=== PATIENT | male | born 1990 | race Caucasian/White ===

== ENCOUNTER 2017-08-16 20:53 | Emergency (ER) | payer OTHER, SELFPAY ==
[2017-08-16] MEDS ORDERED: MORPHINE SULFATE 4 MG INJ IV ONE (21:14)
[2017-08-16] MEDS ORDERED: CLINDAMYCIN-D5W 600 MG/50 ML*** 600 MG/50 ML BAG IV STA (21:15)
[2017-08-16] MEDS ORDERED: Adacel Vial IM ONE ×2 (21:15→21:27)
[2017-08-16] MEDS ORDERED: MORPHINE SULFATE 4 MG INJ ONE (21:23)
[2017-08-16] MEDS ORDERED: CLINDAMYCIN-D5W 600 MG/50 ML*** 600 MG/50 ML BAG IV ONE (21:24)
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
[2017-08-16] MEDS ORDERED: Bacitracin EYE OINT OP ONE (21:27)
[2017-08-16] MEDS ORDERED: TETRACAINE 0.5% STERI-UNIT SOL OP ONE (22:19)
[2017-08-16] MEDS ORDERED: Fluor-I-Strip/Ful-Flo OP ONE ×2 (22:20→22:25)
[2017-08-16] MEDS ORDERED: Bacitracin EYE OINT ONE (22:24)
[2017-08-16] MEDS ORDERED: Erythromycin 3.5 GM OPHTH. OP ONE (22:25)
[2017-08-16] MEDS ORDERED: TETRACAINE 0.5% STERI-UNIT SOL OP STA (22:25)
[2017-08-16] MEDS ORDERED: PERCOCET TABLET 5/325MG PO STA (22:48)
[2017-08-16] MEDS ORDERED: PERCOCET TABLET 5/325MG ONE (22:50)
[2017-08-16 23:04] VITALS: BP 119/92; PULSE 76; O2SAT 97
== END 2017-08-16 23:04 | disposition home or self-care (01) ==
LOC: ED 20:53
DX: T20.00XA Burn of unspecified degree of head, face, and neck, unspecified site, initial encounter (principal); S05.02XA Injury of conjunctiva and corneal abrasion without foreign body, left eye, initial encounter; X16.XXXA Contact with hot heating appliances, radiators and pipes, initial encounter; F10.129 Alcohol abuse with intoxication, unspecified
CPT/HCPCS: 36000; 90471; 90715; 96365; 96372; 96374; 99284; J2270; A9270-GY

== ENCOUNTER 2017-11-01 21:41 | Emergency (ER) | payer OTHER ==
[2017-11-01] MEDS ORDERED: Sodium Chloride 0.9% 1000 ML 1,000 ML IV STA (22:22)
[2017-11-01] MEDS ORDERED: Zofran 4 MG/2 ML VIAL IV ONE (22:22)
[2017-11-01] MEDS ORDERED: Sodium Chloride 0.9% 1000 ML 1,000 ML ONE (22:31)
[2017-11-01] MEDS ORDERED: Zofran 4 MG/2 ML VIAL ONE (22:31)
[2017-11-01 22:33] LABS: BASOPHIL % 0.3 % (0.0-0.4); Basophil (Absolute #) 0.03 (0-0.4); Eosinophil % 4.9 % (0.00-5.0); Eosinophil (Absolute #) 0.45 (0-0.5); Granulocyte Absolute (ANC) 5.17 (1.4-6.9); Granulocytes % 56.7 % (36.0-66.0); Hematocrit 39.3 % (42-50); Hemoglobin 14.3 gm/dl (12.5-18.0); Lymphocyte (Absolute #) 2.59 (1.0-4.6); Lymphocytes % 28.3 % (24.0-44.0); Mean Cell Volume 85.2 fl (78-100); Mean Corpuscular Hgb Concent. 36.4 g/dl (32-36); Mean Platelet Volume 9.1 fl (6-9.5); Monocytes % 9.8 % (0.0-12.0); Platelet Count 221 K/mm3 (150-450); Red Blood Count 4.61 M/mm3 (4.1-5.6); Red Cell Distribution Width 12.3 % (11.5-14.0); White Blood Count 9.1 K/mm3 (4.0-10.5)
[2017-11-01 22:39] LABS: ALBUMIN 4.9 g/dL (3.5-5.0); ALKALINE PHOSPHATASE 65 U/L (38-126); AMYLASE 102 U/L (30-110); ANION GAP 15.5 MEQ/L (5-15); BLOOD UREA NITROGEN 26 mg/dL (9-20); CHLORIDE 101 mmol/L (98-107); Calcium 8.9 mg/dL (8.4-10.2); Carbon Dioxide 27 mmol/L (22-30); Creatinine 1 1.38 mg/dL (0.66-1.25); Glucose 87 mg/dL (74-106); LIPASE 86 U/L (23-300); Potassium 3.8 mmol/L (3.5-5.1); SGOT/AST 22 U/L (17-59); SGPT/ALT 15 U/L (0-50); SODIUM 140 mmol/L (137-145); Total Protein 7.1 g/dL (6.3-8.2)
[2017-11-01 23:18] LABS: Barbiturate,Urine NEGATIVE (NEGATIVE); Benzodiazepine,Urine POSITIVE (NEGATIVE); Cocaine,Urine NEGATIVE (NEGATIVE); Methadone,Urine NEGATIVE (NEGATIVE); Opiate,Urine POSITIVE (NEGATIVE); PCP,Urine NEGATIVE (NEGATIVE); THC,Urine NEGATIVE (NEGATIVE)
[2017-11-01 23:25] LABS: Appearance CLEAR (CLEAR); Bilirubin NEGATIVE (NEGATIVE); Blood NEGATIVE Ery/ul (0-5); Glucose NEGATIVE (NEGATIVE); Ketones NEGATIVE (NEGATIVE); Leukocyte Esterase NEGATIVE (NEGATIVE); Nitrite NEGATIVE (NEGATIVE); Protein,Urine Dip TRACE (Negative); Specific Gravity 1.025 (1.005-1.025); Urobilinogen NORMAL mg/dL (0-1)
[2017-11-01 23:26] LABS: Bacteria FEW /HPF (NEGATIVE); Epithelial Cells MODERATE /HPF (FEW); Mucus SLIGHT /HPF (NEGATIVE); WBC 0-2 /HPF (0-5)
[2017-11-01 23:27] VITALS: O2SAT 99
[2017-11-01 23:43] LABS: Amphetamine,Urine POSITIVE (NEGATIVE)
--- NOTE | 2017-11-01 23:54 | ERPHSYRPT ---
- History of Present Illness Time Seen by Provider: 11/01/17 22:00 Historian: patient Exam Limitations: clinical condition Patient Subjective Stated Complaint: pt states he has been having pain in his abd, n/v for past few days. states he has been having dark stools. also c/o headache. Triage Nursing Assessment: pt alert and oriented, asnwers questions approp. pt ambulatory with steady gait noted, respirations nonlabored with lungs cta. abd osft and nontender to palpation. bowel sounds preent x4. pu pils equal and reactive. bilat upper and lower ext strength equal and wnl. Physician History: PATIENT WITH A HISTORY OF DEPRESSION, CHRONIC PAIN SYNDROME COMPLAINS OF PERIUMBILICAL ABDOMINAL PAIN X 2-3 DAYS, HAD 1 EPISODE OF EMESIS TONIGHT. TREATED FOR SINUS INFECTION TWICE OVER THE PAST 2 WEEKS. DENIES DIARRHEA, URINARY SYMPTOMS OR FEVER. Timing/Duration: day(s) Activities at Onset: none Quality: cramping Abdominal Pain Onset Location: periumbilical Pain Radiation: no radiation Severity of Pain-Max: moderate Severity of Pain-Current: moderate Modifying Factors: Improves With: nothing Associated Symptoms: nausea, vomiting Previous symptoms: no prior history Allergies/Adverse Reactions: Penicillins Allergy (Verified 11/01/17 22:00) Home Medications: Amphet Asp/Amphet/D-Amphet [Adderall 30 mg Tablet] 30 mg PO DAILY 02/08/16 [ History] Hydrocodone/Acetaminophen [Vicodin Es 7.5-300 mg Tablet] 1 each PO DAILY [History] Hx Tetanus, Diphtheria Vaccination/Date Given: Yes Hx Influenza Vaccination/Date Given: No Hx Pneumococcal Vaccination/Date Given: No Immunizations Up to Date: Yes - Review of Systems Constitutional: No Fever, No Chills Eyes: No Symptoms Ears, Nose, & Throat: No Symptoms Respiratory: No Symptoms, No Cough, No Dyspnea Cardiac: No Chest Pain, No Edema, No Syncope Abdominal/Gastrointestinal: Abdominal Pain, Nausea, Vomiting, No Diarrhea Genitourinary Symptoms: No Symptoms, No Dysuria Musculoskeletal: No Symptoms, No Back Pain, No Neck Pain Skin: No Symptoms, No Rash Neurological: No Dizziness, No Focal Weakness, No Sensory Changes Psychological: No Symptoms Endocrine: No Symptoms All Other Systems: Reviewed and Negative - Past Medical History Pertinent Past Medical History: Yes Neurological History: No Pertinent History ENT History: No Pertinent History Cardiac History: No Pertinent History Respiratory History: Asthma Endocrine Medical History: No Pertinent History Musculoskeletal History: No Pertinent History GI Medical History: No Pertinent History History: No Pertinent History Psycho-Social History: Anxiety, Attention Deficit Disorder Male Reproductive Disorders: No Pertinent History - Past Surgical History Past Surgical History: Yes Neuro Surgical History: No Pertinent History Cardiac: No Pertinent History Respiratory: No Pertinent History Gastrointestinal: No Pertinent History Genitourinary: No Pertinent History Musculoskeletal: No Pertinent History Male Surgical History: No Pertinent History Other Surgical History: TONSILS REMOVED - Social History Smoking Status: Smoker, status unknown How long have you smoked: 8 Exposure to second hand smoke: No Drug Use: none Patient Lives Alone: No - Nursing Vital Signs Nursing Vital Signs: Initial Vital Signs Temperature 98.1 F 11/01/17 21:51 Pulse Rate 98 H 11/01/17 21:51 Respiratory Rate 20 11/01/17 21:51 Blood Pressure 155/116 11/01/17 21:51 O2 Sat by Pulse Oximetry 98 11/01/17 21:51 Pain Scale Pain Intensity 6 - Physical Exam General Appearance: no apparent distress, alert Eye Exam: PERRL/EOMI, eyes nml inspection Ears, Nose, Throat Exam: normal ENT inspection, pharynx normal, moist mucous membranes Neck Exam: normal inspection, non-tender, supple, full range of motion Respiratory Exam: normal breath sounds, lungs clear, No respiratory distress Cardiovascular Exam: regular rate/rhythm, normal heart sounds Gastrointestinal/Abdomen Exam: soft, normal bowel sounds, tenderness (MODERATE PERIUMBILICAL TENDERNESS), No mass Back Exam: normal inspection, normal range of motion, No CVA tenderness, No vertebral tenderness Extremity Exam: normal inspection, normal range of motion, pelvis stable Neurologic Exam: alert, oriented x 3, cooperative, normal mood/affect, nml cerebellar function, sensation nml, No motor deficits Skin Exam: normal color, warm, dry SpO2: 99 Oxygen Delivery: Room Air - CT Exams Abdomen/Pelvis CT Interpretation: Tele-radiologist Report, Normal Appendix (NO ACUTE FINDINGS) Ordered Tests: Active Orders 24 hr Category Date Time Status Clean Catch Urine Specimen STAT Care 11/01/17 22:09 Active IV Insertion STAT Care 11/01/17 22:09 Active ABDOMEN AND PELVIS W CONTRAST [CT] Stat Exams 11/01/17 22:22 Taken AMYLASE Stat Lab 11/01/17 21:50 Completed CBC W DIFF Stat Lab 11/01/17 21:50 Completed CMP Stat Lab 11/01/17 21:50 Completed ETHYL ALCOHOL Stat Lab 11/01/17 21:50 Completed LIPASE Stat Lab 11/01/17 21:50 Completed UA W/ MICROSCOPIC Stat Lab 11/01/17 22:30 Completed Urine Triage Profile Stat Lab 11/01/17 22:30 Completed Medication Summary Discontinued Medications Generic Name Dose Route Start Last Admin Trade Name Moustapha PRN Reason Stop Dose Admin Sodium Chloride 1,000 mls @ 999 mls/hr 11/01/17 22:22 11/01/17 23:39 Sodium Chloride 0.9% 1000 Ml IV 11/01/17 23:22 Infused .Q1H1M STA Infusion Sodium Chloride Confirm 11/01/17 22:31 Sodium Chloride 0.9% 1000 Ml Administered 11/01/17 22:32 Dose 1,000 mls @ ud .ROUTE .STK-MED ONE Ondansetron HCl 4 mg 11/01/17 22:22 11/01/17 22:37 Zofran 4 Mg/2 Ml Vial IV 11/01/17 22:23 4 mg STAT ONE Administration Ondansetron HCl Confirm 11/01/17 22:31 Zofran 4 Mg/2 Ml Vial Administered 11/01/17 22:32 Dose 4 mg .ROUTE .STK-MED ONE Lab/Rad Data: Laboratory Result Diagrams 11/01/17 21:50 11/01/17 21:50 Laboratory Results 11/01/17 11/01/17 11/01/17 Range/Units 22:30 22:30 21:50 WBC (4.0-10.5) K/mm3 RBC (4.1-5.6) M/mm3 Hgb (12.5-18.0) gm/dl Hct (42-50) % MCV (78-100) fl MCH (26-32) pg MCHC (32-36) g/dl RDW (11.5-14.0) % Plt Count (150-450) K/mm3 MPV (6-9.5) fl Gran % (36.0-66.0) % Eos # (Auto) (0-0.5) Absolute Lymphs (auto) (1.0-4.6) Absolute Monos (auto) (0.0-1.3) Lymphocytes % (24.0-44.0) % Monocytes % (0.0-12.0) % Eosinophils % (0.00-5.0) % Basophils % (0.0-0.4) % Absolute Granulocytes (1.4-6.9) Basophils # (0-0.4) Sodium (137-145) mmol/L Potassium (3.5-5.1) mmol/L Chloride (98-107) mmol/L Carbon Dioxide (22-30) mmol/L Anion Gap (5-15) MEQ/L BUN (9-20) mg/dL Creatinine (0.66-1.25) mg/dL Estimated GFR ML/MIN Glucose (74-106) mg/dL Calcium (8.4-10.2) mg/dL Total Bilirubin (0.2-1.3) mg/dL AST (17-59) U/L ALT (0-50) U/L Alkaline Phosphatase (38-126) U/L Serum Total Protein (6.3-8.2) g/dL Albumin (3.5-5.0) g/dL Amylase (30-110) U/L Lipase (23-300) U/L Ur Collection Type VOID Urine Color DARK YELLOW (YELLOW) Urine Appearance CLEAR (CLEAR) Urine pH 5.0 (5-6) Ur Specific [place] 1.025 (1.005-1.025) Urine Protein TRACE (Negative) Urine Ketones NEGATIVE (NEGATIVE) Urine Blood NEGATIVE (0-5) Jose/ul Urine Nitrite NEGATIVE (NEGATIVE) Urine Bilirubin NEGATIVE (NEGATIVE) Urine Urobilinogen NORMAL (0-1) mg/dL Ur Leukocyte Esterase NEGATIVE (NEGATIVE) Urine Microscopic RBC 2-5 (0-2) /HPF Urine Microscopic WBC 0-2 (0-5) /HPF Ur Epithelial Cells MODERATE (FEW) /HPF Urine Bacteria FEW (NEGATIVE) /HPF Urine Mucus SLIGHT (NEGATIVE) /HPF Urine Culture Reflexed NO (NO) Urine Glucose NEGATIVE (NEGATIVE) mg/dL Urine Opiates Level POSITIVE (NEGATIVE) Ur Methadone NEGATIVE (NEGATIVE) Urine Barbiturates NEGATIVE (NEGATIVE) Ur Phencyclidine (PCP) NEGATIVE (NEGATIVE) Urine Amphetamine POSITIVE (NEGATIVE) U Benzodiazepine Level POSITIVE (NEGATIVE) Urine Cocaine NEGATIVE (NEGATIVE) Urine Marijuana (THC) NEGATIVE (NEGATIVE) Ethyl Alcohol < 10 (0-10) mg/dL Specimen Received 11/01/17 2300 11/01/17 11/01/17 Range/Units 21:50 21:50 WBC 9.1 (4.0-10.5) K/mm3 RBC 4.61 (4.1-5.6) M/mm3 Hgb 14.3 (12.5-18.0) gm/dl Hct 39.3 L (42-50) % MCV 85.2 (78-100) fl MCH 31.0 (26-32) pg MCHC 36.4 H (32-36) g/dl RDW 12.3 (11.5-14.0) % Plt Count 221 (150-450) K/mm3 MPV 9.1 (6-9.5) fl Gran % 56.7 (36.0-66.0) % Eos # (Auto) 0.45 (0-0.5) Absolute Lymphs (auto) 2.59 (1.0-4.6) Absolute Monos (auto) 0.90 (0.0-1.3) Lymphocytes % 28.3 (24.0-44.0) % Monocytes % 9.8 (0.0-12.0) % Eosinophils % 4.9 (0.00-5.0) % Basophils % 0.3 (0.0-0.4) % Absolute Granulocytes 5.17 (1.4-6.9) Basophils # 0.03 (0-0.4) Sodium 140 (137-145) mmol/L Potassium 3.8 (3.5-5.1) mmol/L Chloride 101 (98-107) mmol/L Carbon Dioxide 27 (22-30) mmol/L Anion Gap 15.5 H (5-15) MEQ/L BUN 26 H (9-20) mg/dL Creatinine 1.38 H (0.66-1.25) mg/dL Estimated GFR > 60.0 ML/MIN Glucose 87 (74-106) mg/dL Calcium 8.9 (8.4-10.2) mg/dL Total Bilirubin 1.10 (0.2-1.3) mg/dL AST 22 (17-59) U/L ALT 15 (0-50) U/L Alkaline Phosphatase 65 (38-126) U/L Serum Total Protein 7.1 (6.3-8.2) g/dL Albumin 4.9 (3.5-5.0) g/dL Amylase 102 (30-110) U/L Lipase 86 (23-300) U/L Ur Collection Type Urine Color (YELLOW) Urine Appearance (CLEAR) Urine pH (5-6) Ur Specific [place] (1.005-1.025) Urine Protein (Negative) Urine Ketones (NEGATIVE) Urine Blood (0-5) Jose/ul Urine Nitrite (NEGATIVE) Urine Bilirubin (NEGATIVE) Urine Urobilinogen (0-1) mg/dL Ur Leukocyte Esterase (NEGATIVE) Urine Microscopic RBC (0-2) /HPF Urine Microscopic WBC (0-5) /HPF Ur Epithelial Cells (FEW) /HPF Urine Bacteria (NEGATIVE) /HPF Urine Mucus (NEGATIVE) /HPF Urine Culture Reflexed (NO) Urine Glucose (NEGATIVE) mg/dL Urine Opiates Level (NEGATIVE) Ur Methadone (NEGATIVE) Urine Barbiturates (NEGATIVE) Ur Phencyclidine (PCP) (NEGATIVE) Urine Amphetamine (NEGATIVE) U Benzodiazepine Level (NEGATIVE) Urine Cocaine (NEGATIVE) Urine Marijuana (THC) (NEGATIVE) Ethyl Alcohol (0-10) mg/dL Specimen Received - Progress Progress: improved Progress Note: 11/01/17 23:51 IV NORMAL SALINE 1 LITER BOLUS, TORADOL 30MG IV Counseled pt/family regarding: lab results, diagnosis, need for follow-up, rad results - Departure Time of Disposition: 00:40 Departure Disposition: Home Clinical Impression: ABDOMINAL PAIN, POLSUBSTANCE ABUSE Condition: Stable Critical Care Time: No Referrals: LILLY CHENEY MD [Primary Care Provider] - Additional Instructions: TORADAL 10MG EVERY 6 HOURS FOR PAIN NEEDED. ZOFRAN 4MG EVERY 6 HOURS NEEDED FOR NAUSEA. CONSULT YOUR PRIMARY CARE PROVIDER FOR FOLLOWUP IN 1 WEEK. ZOFRAN 4MG EVERY 6 HOURS FOR NAUSEA NEEDED. Prescriptions: Ketorolac Tromethamine [Toradol] 10 mg PO Q6H PRN PRN #15 tablet PRN Reason: Pain Ondansetron ODT 4 MG [Zofran Odt 4 mg] 4 mg PO Q6H PRN PRN #6 tab.rapdis PRN Reason: Nausea
[2017-11-02] MEDS ORDERED: TORAdol 30 mg Injection IV ONE (00:41)
[2017-11-02] MEDS ORDERED: TORAdol 30 mg Injection ONE (00:43)
[2017-11-02 00:55] VITALS: BP 142/91; PULSE 93
--- NOTE | 2017-11-02 12:13 | XRAY ---
Indication: Lower abdominal pain. Multiple contiguous axial images obtained through the abdomen and pelvis using 80 cc Isovue 370 contrast only. Comparison: None Lung bases are clear. Heart is not enlarged. Noncontrasted stomach and bowel loops appear nonobstructed. Normal appendix. No free fluid/air. Remaining liver, gallbladder, pancreas, spleen, adrenal glands, kidneys, ureters, bladder, and aorta appear normal in CT appearance and attenuation. No pathologic retroperitoneal lymphadenopathy. Osseous structures intact. Impression: CT abdomen/pelvis with contrast exam is negative. Comment: Preliminary interpretation was made by C. No discrepancy. CTDI 9.37
== END 2017-11-02 01:01 | disposition home or self-care (01) ==
LOC: ED 21:41
DX: R10.33 Periumbilical pain (principal); R11.2 Nausea with vomiting, unspecified; F19.10 Other psychoactive substance abuse, uncomplicated
CPT/HCPCS: 36000; 36415; 74177; 80053; 80307; 81000; 82150; 83690; 85025; 96360; 96374; 96375; 99284; J1885; J2405; G0480

== ENCOUNTER 2017-11-17 17:32 | Emergency (ER) | payer OTHER ==
[2017-11-17 17:43] VITALS: BP 132/93; PULSE 84; O2SAT 95
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
[2017-11-17] MEDS ORDERED: Adacel Vial IM ONE ×2 (18:32→18:38)
[2017-11-17] MEDS ORDERED: ULTRAM 50 MG PO ONE (18:44)
[2017-11-17] MEDS ORDERED: ULTRAM 50 MG ONE (18:52)
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
== END 2017-11-17 19:08 | disposition home or self-care (01) ==
LOC: ED 17:32
DX: S60.221A Contusion of right hand, initial encounter (principal); W22.8XXA Striking against or struck by other objects, initial encounter
CPT/HCPCS: 73130; 90471; 90715; 99284; A9270-GY

== ENCOUNTER 2018-02-11 16:19 | Emergency (ER) | payer OTHER ==
[2018-02-11 16:36] VITALS: BP 141/103; PULSE 104; O2SAT 100
--- NOTE | 2018-02-11 17:16 | ERPHSYRPT ---
- History of Present Illness Time Seen by Provider: 02/11/18 16:45 Source: patient Patient Subjective Stated Complaint: states has had head and chest congestion for two days. also coughing. denies fever. does states he gets short of breath after walking. generalized pain Triage Nursing Assessment: ambulated to room per self. skin w/d, color normal, resp nonlabored Physician History: 27 y/o white male presents with cough and chest congestion for 2 days. pts rib hurt from coughing. also has dental pain but has consultation tomorrow with dentist per his report. has tried otc cough medicine but it is not helping. Timing/Duration: day(s) (2) Cough Quality/Degree: mild, dry cough Possible Cause: occasional episodes Modifying Factors: Improves With: albuterol inhaler (pt has an inhaler), coughing Associated Symptoms: chest pain/soreness (with cough), cough, No fever, No chills, No shortness of breath, No wheezing Allergies/Adverse Reactions: Penicillins Allergy (Verified 02/11/18 16:36) Hx Tetanus, Diphtheria Vaccination/Date Given: Yes Hx Influenza Vaccination/Date Given: Yes Hx Pneumococcal Vaccination/Date Given: No Immunizations Up to Date: No - Review of Systems Constitutional: No Symptoms, No Fever, No Chills Eyes: No Symptoms Ears, Nose, & Throat: No Symptoms Respiratory: No Cough, No Dyspnea, No Stridor, No Wheezing Cardiac: No Symptoms, No Chest Pain, No Palpitations, No Syncope Abdominal/Gastrointestinal: No Symptoms, No Abdominal Pain, No Nausea, No Vomiting, No Diarrhea Genitourinary Symptoms: No Symptoms, No Dysuria, No Frequency, No Hematuria Musculoskeletal: No Symptoms Skin: No Symptoms Neurological: No Symptoms Psychological: No Symptoms Endocrine: No Symptoms Hematologic/Lymphatic: No Symptoms Immunological/Allergic: No Symptoms All Other Systems: Reviewed and Negative - Past Medical History Pertinent Past Medical History: Yes Neurological History: No Pertinent History ENT History: No Pertinent History Cardiac History: No Pertinent History Respiratory History: Asthma Endocrine Medical History: No Pertinent History Musculoskeletal History: No Pertinent History GI Medical History: No Pertinent History History: No Pertinent History Psycho-Social History: Anxiety, Attention Deficit Disorder Male Reproductive Disorders: No Pertinent History - Past Surgical History Past Surgical History: Yes Neuro Surgical History: No Pertinent History Cardiac: No Pertinent History Respiratory: No Pertinent History Gastrointestinal: No Pertinent History Genitourinary: No Pertinent History Musculoskeletal: No Pertinent History Male Surgical History: No Pertinent History Other Surgical History: TONSILS REMOVED - Social History Smoking Status: Current every day smoker How long have you smoked: 10 Exposure to second hand smoke: Yes Drug Use: marijuana Patient Lives Alone: No - Nursing Vital Signs Nursing Vital Signs: Initial Vital Signs Temperature 98.6 F 02/11/18 16:28 Pulse Rate 104 H 02/11/18 16:28 Respiratory Rate 16 02/11/18 16:28 Blood Pressure 141/103 02/11/18 16:28 O2 Sat by Pulse Oximetry 100 02/11/18 16:28 Pain Scale Pain Intensity 7 - Physical Exam General Appearance: no apparent distress, alert Eye Exam: PERRL/EOMI, eyes nml inspection Ears, Nose, Throat Exam: normal ENT inspection, moist mucous membranes Neck Exam: normal inspection, non-tender, supple, full range of motion Respiratory Exam: normal breath sounds, lungs clear, airway intact, No chest tenderness, No respiratory distress, No accessory muscle use, No rhonchi, No wheezing, No stridor Cardiovascular Exam: regular rate/rhythm, No normal heart sounds, No normal peripheral pulses Gastrointestinal/Abdomen Exam: soft, normal bowel sounds, No tenderness, No guarding, No rebound Rectal Exam: not done Back Exam: normal inspection, normal range of motion, No CVA tenderness, No vertebral tenderness Extremity Exam: normal inspection, normal range of motion, pelvis stable Neurologic Exam: alert, oriented x 3, cooperative, member of the [employer] II-XII nml as tested Skin Exam: normal color, warm, dry Lymphatic Exam: No adenopathy SpO2 Interpretation: normal SpO2: 100 Oxygen Delivery: Room Air - Course Nursing assessment & vital signs reviewed: Yes - Progress Progress: re-examined, unchanged Air Movement: good Blood Culture(s) Obtained: No Antibiotics given: Yes Counseled pt/family regarding: diagnosis, need for follow-up - Departure Time of Disposition: 17:15 Departure Disposition: Home Clinical Impression: Bronchitis Condition: Stable Critical Care Time: No Additional Instructions: drink plenty of fluids. no exposure to any smoke. follow up with primary doctor for further management. follow up with dentist tomorrow Prescriptions: Azithromycin 250 mg [Zithromax 250 MG TABLET] 250 mg PO ZPACK #6 tablet Benzonatate [Tessalon Perle] 200 mg PO TID #12 capsule Prednisone 10 mg [Deltasone 10 mg] 10 mg PO TID #12 tablet
[2018-02-11] MEDS ORDERED: Levofloxacin 250MG Tablet PO ONE (17:19)
[2018-02-11] MEDS ORDERED: HYDROCODONE-ACETAMIN 2.5-108/5 ML SOLUTION PO STA (17:20)
[2018-02-11] MEDS ORDERED: DELTASONE 10 MG PO ONE (17:20)
[2018-02-11] MEDS ORDERED: HYDROCODONE-ACETAMIN 2.5-108/5 ML SOLUTION ONE (17:28)
[2018-02-11] MEDS ORDERED: Levofloxacin 250MG Tablet ONE (17:28)
== END 2018-02-11 18:04 | disposition home or self-care (01) ==
LOC: ED 16:19
DX: J40 Bronchitis, not specified as acute or chronic (principal)
CPT/HCPCS: 99283; A9270-GY

== ENCOUNTER 2018-03-18 00:54 | Emergency (ER) | payer OTHER ==
[2018-03-18] MEDS ORDERED: Sodium Chloride 0.9% 1000 ML 1,000 ML IV STA ×3 (01:29→03:21)
[2018-03-18] MEDS ORDERED: Phenergan 25 MG INJ IV ONE (01:29)
[2018-03-18] MEDS ORDERED: Phenergan 25 MG INJ ONE (01:32)
[2018-03-18] MEDS ORDERED: Sodium Chloride 0.9% 1000 ML 1,000 ML ONE ×3 (01:32→03:49)
--- NOTE | 2018-03-18 01:34 | ERPHSYRPT ---
- History of Present Illness Historian: patient Exam Limitations: no limitations Patient Subjective Stated Complaint: Abd pain starting at 2030 with vomiting and diarrhea, states after eating his mom's cooking Triage Nursing Assessment: a/o, attempting to vomit but only dry heaving, abd hyperactive, soft, flat, tender, tender with palpation Timing/Duration: today (8:30 this evening) Activities at Onset: none Quality: cramping Abdominal Pain Onset Location: periumbilical Pain Radiation: no radiation Severity of Pain-Max: moderate Severity of Pain-Current: moderate Modifying Factors: Improves With: other (patient ate Ham and beans prior to onset of symptoms) Associated Symptoms: diarrhea, nausea, vomiting, No back, No chest pain, No diaphoresis, No fever/chills, No fatigue, No headache, No heartburn, No loss of appetite, No neck pain, No rash, No shortness of breath, No syncope, No testicular pain, No weakness Previous symptoms: no prior history Hx Tetanus, Diphtheria Vaccination/Date Given: Yes Hx Influenza Vaccination/Date Given: Yes Hx Pneumococcal Vaccination/Date Given: No <HAILEE GUERRERO - Last Filed: 03/18/18 07:14> <DOMINIQUE SEAMAN - Last Filed: 03/18/18 07:56> - History of Present Illness Time Seen by Provider: 03/18/18 01:26 Physician History: 27-year-old white male arrives with complaint of periumbilical abdominal pain nausea which is been persistent vomiting which is been persistent as well as diarrhea. Patient states he ate his mother's [place] beans prior to onset of symptoms. Past medical history includes asthma, anxiety, attention deficit disorder Old chart shows a history of chronic pain disorder, and depression Past surgical history includes tonsils removed Social history includes tobacco use and marijuana use (HAILEE GUERRERO) Allergies/Adverse Reactions: Penicillins Allergy (Verified 02/11/18 16:36) - Review of Systems Constitutional: No Fever, No Chills Eyes: No Symptoms Ears, Nose, & Throat: No Symptoms Respiratory: No Cough, No Dyspnea Cardiac: No Chest Pain, No Edema, No Syncope Abdominal/Gastrointestinal: Abdominal Pain, Nausea, Vomiting, Diarrhea, No Constipation, No Hematemesis, No Hematochezia, No Melena, No Dysphagia, No Appetite Changes Genitourinary Symptoms: No Dysuria Musculoskeletal: No Back Pain, No Neck Pain Skin: No Rash Neurological: No Dizziness, No Focal Weakness, No Sensory Changes Psychological: No Symptoms Endocrine: No Symptoms All Other Systems: Reviewed and Negative <HAILEE GUERRERO - Last Filed: 03/18/18 07:14> - Past Medical History Pertinent Past Medical History: Yes Neurological History: No Pertinent History ENT History: No Pertinent History Cardiac History: No Pertinent History Respiratory History: Asthma Endocrine Medical History: No Pertinent History Musculoskeletal History: No Pertinent History GI Medical History: No Pertinent History History: No Pertinent History Psycho-Social History: Anxiety, Attention Deficit Disorder Male Reproductive Disorders: No Pertinent History - Past Surgical History Past Surgical History: Yes Neuro Surgical History: No Pertinent History Cardiac: No Pertinent History Respiratory: No Pertinent History Gastrointestinal: No Pertinent History Genitourinary: No Pertinent History Musculoskeletal: No Pertinent History Male Surgical History: No Pertinent History Other Surgical History: TONSILS REMOVED - Social History Smoking Status: Never smoker How long have you smoked: 10 Exposure to second hand smoke: Yes Drug Use: none Patient Lives Alone: No <HAILEE GUERRERO - Last Filed: 03/18/18 07:14> - Physical Exam General Appearance: moderate distress, alert Eye Exam: PERRL/EOMI, eyes nml inspection Ears, Nose, Throat Exam: normal ENT inspection, pharynx normal, moist mucous membranes Neck Exam: normal inspection, non-tender, supple, full range of motion Respiratory Exam: normal breath sounds, lungs clear, No respiratory distress Cardiovascular Exam: regular rate/rhythm, normal heart sounds Gastrointestinal/Abdomen Exam: soft, normal bowel sounds, tenderness ( periumbilical tenderness), No distention, No mass, No guarding, No ecchymosis, No pulsatile mass, No rebound, No hernia, No hepatomegaly, No organomegaly, No splenomegaly, No bruit Back Exam: normal inspection, normal range of motion, No CVA tenderness, No vertebral tenderness Extremity Exam: normal inspection, normal range of motion, pelvis stable Neurologic Exam: alert, oriented x 3, cooperative, 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, normal mood/affect, nml cerebellar function, sensation nml, No motor deficits Skin Exam: normal color, warm, dry SpO2 Interpretation: normal (100%) SpO2: 100 <HAILEE GUERRERO [employer] Last Filed: 03/18/18 07:14> - Nursing Vital Signs Nursing Vital Signs: Initial Vital Signs Temperature 97.8 F 03/18/18 01:05 Pulse Rate 102 H 03/18/18 01:05 Respiratory Rate 22 03/18/18 01:05 Blood Pressure 131/88 03/18/18 01:05 O2 Sat by Pulse Oximetry 100 03/18/18 01:05 Pain Scale Pain Intensity 6 - Course Nursing assessment & vital signs reviewed: Yes <HAILEE GUERRERO - Last Filed: 03/18/18 07:14> Ordered Tests: Active Orders 24 hr Category Date Time Status IV Insertion STAT Care 03/18/18 01:29 Active ABDOMEN AND PELVIS W CONTRAST [CT] Stat Exams 03/18/18 06:19 Taken AMYLASE Stat Lab 03/18/18 01:23 Completed CBC W DIFF Stat Lab 03/18/18 01:18 Completed CMP Stat Lab 03/18/18 01:23 Completed LIPASE Stat Lab 03/18/18 01:23 Completed Lactic Acid Stat Lab 03/18/18 01:29 Completed Lactic Acid Stat Lab 03/18/18 03:50 Completed UA W/RFX UR CULTURE Stat Lab 03/18/18 02:42 Completed Urine Triage Profile Stat Lab 03/18/18 02:42 Completed Medication Summary Generic Name Dose Route Start Last Admin Trade Name Freq PRN Reason Stop Dose Admin Metronidazole 500 mg 03/18/18 10:00 03/18/18 07:46 Flagyl 500 Mg PO 04/17/18 09:59 500 mg TID CHRISSIE Administration Discontinued Medications Generic Name Dose Route Start Last Admin Trade Name Freq PRN Reason Stop Dose Admin Acetaminophen 975 mg 03/18/18 05:38 03/18/18 05:40 Tylenol 325 Mg PO 03/18/18 05:39 975 mg STAT ONE Administration Acetaminophen Confirm 03/18/18 05:40 Tylenol 325 Mg Administered 03/18/18 05:41 Dose 975 mg .ROUTE .STK-MED ONE Diphenhydramine HCl 25 mg 03/18/18 03:57 03/18/18 04:00 Benadryl 50 Mg/Ml IV 03/18/18 03:58 25 mg STAT ONE Administration Diphenhydramine HCl Confirm 03/18/18 03:59 Benadryl 50 Mg/Ml Administered 03/18/18 04:00 Dose 50 mg .ROUTE .STK-MED ONE Hydromorphone HCl 0.5 mg 03/18/18 07:40 03/18/18 07:45 Hydromorphone 1 Mg/Ml Ampule IV 03/18/18 07:41 0.5 mg STAT ONE Administration Hydromorphone HCl Confirm 03/18/18 07:44 Hydromorphone 1 Mg/Ml Ampule Administered 03/18/18 07:45 Dose 1 mg .ROUTE .STK-MED ONE Sodium Chloride 1,000 mls @ 999 mls/hr 03/18/18 01:29 03/18/18 07:04 Sodium Chloride 0.9% 1000 Ml IV 03/18/18 02:29 Infused .Q1H1M STA Infusion Sodium Chloride Confirm 03/18/18 01:32 Sodium Chloride 0.9% 1000 Ml Administered 03/18/18 01:33 Dose 1,000 mls @ ud .ROUTE .STK-MED ONE Sodium Chloride 1,000 mls @ 999 mls/hr 03/18/18 01:44 03/18/18 07:03 Sodium Chloride 0.9% 1000 Ml IV 03/18/18 02:44 Infused .Q1H1M STA Infusion Sodium Chloride Confirm 03/18/18 02:39 Sodium Chloride 0.9% 1000 Ml Administered 03/18/18 02:40 Dose 1,000 mls @ ud .ROUTE .STK-MED ONE Sodium Chloride 1,000 mls @ 999 mls/hr 03/18/18 03:21 03/18/18 07:03 Sodium Chloride 0.9% 1000 Ml IV 03/18/18 04:21 Infused .Q1H1M STA Infusion Sodium Chloride Confirm 03/18/18 03:49 Sodium Chloride 0.9% 1000 Ml Administered 03/18/18 03:50 Dose 1,000 mls @ ud .ROUTE .STK-MED ONE Morphine Sulfate 4 mg 03/18/18 06:35 03/18/18 06:43 Morphine Sulfate 4 Mg Inj IV 03/18/18 06:36 4 mg STAT ONE Administration Morphine Sulfate Confirm 03/18/18 06:38 Morphine Sulfate 4 Mg Inj Administered 03/18/18 06:39 Dose 4 mg .ROUTE .STK-MED ONE Promethazine HCl 12.5 mg 03/18/18 01:29 03/18/18 01:33 Phenergan 25 Mg Inj IV 03/18/18 01:30 12.5 mg STAT ONE Administration Promethazine HCl Confirm 03/18/18 01:32 Phenergan 25 Mg Inj Administered 03/18/18 01:33 Dose 25 mg .ROUTE .STK-MED ONE Lab/Rad Data: Laboratory Result Diagrams 03/18/18 01:18 03/18/18 01:23 Laboratory Results 03/18/18 03/18/18 03/18/18 Range/Units 03:50 02:42 02:42 WBC (4.0-10.5) K/mm3 RBC (4.1-5.6) M/mm3 Hgb (12.5-18.0) gm/dl Hct (42-50) % MCV (78-100) fl MCH (26-32) pg MCHC (32-36) g/dl RDW (11.5-14.0) % Plt Count (150-450) K/mm3 MPV (6-9.5) fl Gran % (36.0-66.0) % Eos # (Auto) (0-0.5) Absolute Lymphs (auto) (1.0-4.6) Absolute Monos (auto) (0.0-1.3) Lymphocytes % (24.0-44.0) % Monocytes % (0.0-12.0) % Eosinophils % (0.00-5.0) % Basophils % (0.0-0.4) % Absolute Granulocytes (1.4-6.9) Basophils # (0-0.4) Sodium (137-145) mmol/L Potassium (3.5-5.1) mmol/L Chloride (98-107) mmol/L Carbon Dioxide (22-30) mmol/L Anion Gap (5-15) MEQ/L BUN (9-20) mg/dL Creatinine (0.66-1.25) mg/dL Estimated GFR ML/MIN Glucose (74-106) mg/dL Lactic Acid 0.9 (0.4-2.0) Calcium (8.4-10.2) mg/dL Total Bilirubin (0.2-1.3) mg/dL AST (17-59) U/L ALT (0-50) U/L Alkaline Phosphatase (38-126) U/L Serum Total Protein (6.3-8.2) g/dL Albumin (3.5-5.0) g/dL Amylase (30-110) U/L Lipase (23-300) U/L Urine Color YELLOW (YELLOW) Urine Appearance SLIGHTLY CLOUDY (CLEAR) Urine pH 5.0 (5-6) Ur Specific [place] 1.024 (1.005-1.025) Urine Protein 30 (Negative) Urine Ketones MODERATE (NEGATIVE) Urine Blood NEGATIVE (0-5) Jose/ul Urine Nitrite NEGATIVE (NEGATIVE) Urine Bilirubin NEGATIVE (NEGATIVE) Urine Urobilinogen NEGATIVE (0-1) mg/dL Ur Leukocyte Esterase NEGATIVE (NEGATIVE) Urine WBC (Auto) 3-5 (0-5) /HPF Urine RBC (Auto) 0-2 (0-2) /HPF U Hyaline Cast (Auto) 0-2 (0-2) /LPF U Epithel Cells (Auto) RARE (FEW) /HPF Urine Bacteria (Auto) RARE (NEGATIVE) /HPF Urine Mucus (Auto) MODERATE (NEGATIVE) /HPF Urine Culture Reflexed NO (NO) Urine Glucose NEGATIVE (NEGATIVE) mg/dL Urine Opiates Level NEGATIVE (NEGATIVE) Ur Methadone NEGATIVE (NEGATIVE) Urine Barbiturates NEGATIVE (NEGATIVE) Ur Phencyclidine (PCP) NEGATIVE (NEGATIVE) Urine Amphetamine POSITIVE (NEGATIVE) U Benzodiazepine Level NEGATIVE (NEGATIVE) Urine Cocaine NEGATIVE (NEGATIVE) Urine Marijuana (THC) POSITIVE (NEGATIVE) 03/18/18 03/18/18 03/18/18 Range/Units 01:29 01:23 01:18 WBC 18.3 H (4.0-10.5) K/mm3 RBC 6.23 H* (4.1-5.6) M/mm3 Hgb 18.9 H (12.5-18.0) gm/dl Hct 54.1 H (42-50) % MCV 86.8 (78-100) fl MCH 30.3 (26-32) pg MCHC 34.9 (32-36) g/dl RDW 13.0 (11.5-14.0) % Plt Count 331 (150-450) K/mm3 MPV 8.7 (6-9.5) fl Gran % 87.8 H (36.0-66.0) % Eos # (Auto) 0.14 (0-0.5) Absolute Lymphs (auto) 0.61 L (1.0-4.6) Absolute Monos (auto) 1.47 H (0.0-1.3) Lymphocytes % 3.3 L (24.0-44.0) % Monocytes % 8.0 (0.0-12.0) % Eosinophils % 0.8 (0.00-5.0) % Basophils % 0.1 (0.0-0.4) % Absolute Granulocytes 16.06 H (1.4-6.9) Basophils # 0.02 (0-0.4) Sodium 141 (137-145) mmol/L Potassium 4.1 (3.5-5.1) mmol/L Chloride 94 L (98-107) mmol/L Carbon Dioxide 27 (22-30) mmol/L Anion Gap 23.6 H (5-15) MEQ/L BUN 26 H (9-20) mg/dL Creatinine 1.21 (0.66-1.25) mg/dL Estimated GFR > 60.0 ML/MIN Glucose 108 H (74-106) mg/dL Lactic Acid 2.8 H (0.4-2.0) Calcium 10.9 H (8.4-10.2) mg/dL Total Bilirubin 1.50 H (0.2-1.3) mg/dL AST 33 (17-59) U/L ALT 28 (0-50) U/L Alkaline Phosphatase 101 (38-126) U/L Serum Total Protein 10.2 H (6.3-8.2) g/dL Albumin > 6.0 H (3.5-5.0) g/dL Amylase 128 H (30-110) U/L Lipase 50 (23-300) U/L Urine Color (YELLOW) Urine Appearance (CLEAR) Urine pH (5-6) Ur Specific [place] (1.005-1.025) Urine Protein (Negative) Urine Ketones (NEGATIVE) Urine Blood (0-5) Jose/ul Urine Nitrite (NEGATIVE) Urine Bilirubin (NEGATIVE) Urine Urobilinogen (0-1) mg/dL Ur Leukocyte Esterase (NEGATIVE) Urine WBC (Auto) (0-5) /HPF Urine RBC (Auto) (0-2) /HPF U Hyaline Cast (Auto) (0-2) /LPF U Epithel Cells (Auto) (FEW) /HPF Urine Bacteria (Auto) (NEGATIVE) /HPF Urine Mucus (Auto) (NEGATIVE) /HPF Urine Culture Reflexed (NO) Urine Glucose (NEGATIVE) mg/dL Urine Opiates Level (NEGATIVE) Ur Methadone (NEGATIVE) Urine Barbiturates (NEGATIVE) Ur Phencyclidine (PCP) (NEGATIVE) Urine Amphetamine (NEGATIVE) U Benzodiazepine Level (NEGATIVE) Urine Cocaine (NEGATIVE) Urine Marijuana (THC) (NEGATIVE) - Progress Progress: improved <HAILEE GUERRERO - Last Filed: 03/18/18 07:14> - Progress Counseled pt/family regarding: lab results, diagnosis, need for follow-up, rad results <DOMINIQUE SEAMAN - Last Filed: 03/18/18 07:56> - Progress Progress Note: 03/18/18 01:45 27-year-old white male arrives with complaint of persistent nausea vomiting diarrhea for approximately 3-1/2 hours after Ham and beans Patient has periumbilical abdominal tenderness. Patient does have a positive lactate of 2.8 however he has no fevers, vitals are stable. There are no signs of sepsis Will go ahead and provide IV of normal saline for the patient patient has been given Phenergan IV for nausea and vomiting this should help his abdominal pain as well . 03/18/18 03:09 Patient feeling better after IV normal saline and IV Phenergan Patient did have an elevated lactate of 2.8 also elevated white blood cell count of 18,000 I have offered the patient CT of the abdomen because he has continuing periumbilical pain however he states he is much better and does not want CT of the abdomen at this point he feels like his abdomen was hurting because of the vomiting Patient is receiving his second liter of normal saline we will consider third Will defer CT abdomen at this point.. 03/18/18 03:59 Patient started on his third liter of normal saline. He states he is starting to have some cramping returning Will give patient Benadryl 25 mg IV. 03/18/18 06:19 Patient was improving starting to feel better after 3 L of normal saline however now he states he is beginning to have periumbilical crampy pain. 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 Will go ahead and give the patient morphine 4 mg IV go ahead and obtain CT of the abdomen. 03/18/18 07:[address] and reading. Case is discussed with Dr. Seaman. He will assume care of this patient secondary to shift change. (HAILEE GUERRERO) 03/18/18 07:34 ct abd/pelvis-no bowel obstruction; ileus versus enterocolitis. pt states he is feeling better. 03/18/18 07:55 inspect report viewed and copy placed with chart (DOMINIQUE SEAMAN) <HAILEE GUERRERO - Last Filed: 03/18/18 07:14> - Departure Time of Disposition: 07:38 Departure Disposition: Home Critical Care Time: No <DOMINIQUE SEAMAN - Last Filed: 03/18/18 07:56> - Departure Clinical Impression: Enterocolitis Condition: Stable Referrals: DOCTOR,NO FAMILY [Primary Care Provider] - Additional Instructions: clear liquid diet for next 12 hours then advance diet slowly. avoid all illicit drugs. take medications as prescribed. follow up with primary doctor for further management. Prescriptions: Hydrocodone/APAP 5/325 [[place] 5/325 mg] 1 each PO Q8H PRN PRN #6 tablet MDD 3 PRN Reason: Pain Metronidazole 500 mg [Flagyl 500 MG] 500 mg PO TID #21 tablet Ondansetron HCl [Zofran] 4 mg PO TID PRN #10 tablet PRN Reason: Nausea/Vomiting
[2018-03-18 01:40] LABS: Lactic Acid 2.8 (0.4-2.0)
[2018-03-18 02:04] LABS: BASOPHIL % 0.1 % (0.0-0.4); Basophil (Absolute #) 0.02 (0-0.4); Eosinophil % 0.8 % (0.00-5.0); Eosinophil (Absolute #) 0.14 (0-0.5); Granulocytes % 87.8 % (36.0-66.0); Hematocrit 54.1 % (42-50); Hemoglobin 18.9 gm/dl (12.5-18.0); Lymphocyte (Absolute #) 0.61 (1.0-4.6); Lymphocytes % 3.3 % (24.0-44.0); Mean Cell Volume 86.8 fl (78-100); Mean Corpuscular Hemoglobin 30.3 pg (26-32); Mean Corpuscular Hgb Concent. 34.9 g/dl (32-36); Mean Platelet Volume 8.7 fl (6-9.5); Monocyte (Absolute #) 1.47 (0.0-1.3); Platelet Count 331 K/mm3 (150-450); Red Blood Count 6.23 M/mm3 (4.1-5.6); White Blood Count 18.3 K/mm3 (4.0-10.5)
[2018-03-18 02:24] LABS: ALKALINE PHOSPHATASE 101 U/L (38-126); AMYLASE 128 U/L (30-110); ANION GAP 23.6 MEQ/L (5-15); BLOOD UREA NITROGEN 26 mg/dL (9-20); CHLORIDE 94 mmol/L (98-107); Calcium 10.9 mg/dL (8.4-10.2); Carbon Dioxide 27 mmol/L (22-30); Creatinine 1 1.21 mg/dL (0.66-1.25); Glucose 108 mg/dL (74-106); LIPASE 50 U/L (23-300); Potassium 4.1 mmol/L (3.5-5.1); SGOT/AST 33 U/L (17-59); SGPT/ALT 28 U/L (0-50); SODIUM 141 mmol/L (137-145); Total Protein 10.2 g/dL (6.3-8.2)
[2018-03-18 02:26] LABS: ALBUMIN > 6.0 g/dL (3.5-5.0)
[2018-03-18 02:56] LABS: Appearance SLIGHTLY CLOUDY (CLEAR); Bacteria RARE /HPF (NEGATIVE); Bilirubin NEGATIVE (NEGATIVE); Blood NEGATIVE Ery/ul (0-5); Epithelial Cells RARE /HPF (FEW); Glucose NEGATIVE (NEGATIVE); Hyaline Casts 0-2 /LPF (0-2); Ketones MODERATE (NEGATIVE); Leukocyte Esterase NEGATIVE (NEGATIVE); Mucus MODERATE /HPF (NEGATIVE); Nitrite NEGATIVE (NEGATIVE); Protein,Urine Dip 30 (Negative); RBC 0-2 /HPF (0-2); Specific Gravity 1.024 (1.005-1.025); Urobilinogen NEGATIVE mg/dL (0-1)
[2018-03-18 03:07] LABS: Barbiturate,Urine NEGATIVE (NEGATIVE); Benzodiazepine,Urine NEGATIVE (NEGATIVE); Cocaine,Urine NEGATIVE (NEGATIVE); Methadone,Urine NEGATIVE (NEGATIVE); Opiate,Urine NEGATIVE (NEGATIVE); PCP,Urine NEGATIVE (NEGATIVE); THC,Urine POSITIVE (NEGATIVE)
[2018-03-18 03:42] LABS: Amphetamine,Urine POSITIVE (NEGATIVE)
[2018-03-18] MEDS ORDERED: BENADRYL 50 MG/ML IV ONE (03:57)
[2018-03-18] MEDS ORDERED: BENADRYL 50 MG/ML ONE (03:59)
[2018-03-18] MEDS ORDERED: TYLENOL 325 MG PO ONE (05:38)
[2018-03-18] MEDS ORDERED: TYLENOL 325 MG ONE (05:40)
[2018-03-18] MEDS ORDERED: MORPHINE SULFATE 4 MG INJ IV ONE (06:35)
[2018-03-18] MEDS ORDERED: MORPHINE SULFATE 4 MG INJ ONE (06:38)
[2018-03-18] MEDS ORDERED: Hydromorphone 1 mg/ml Ampule IV ONE (07:40)
[2018-03-18] MEDS ORDERED: Flagyl 500 MG ONE (07:44)
[2018-03-18] MEDS ORDERED: Hydromorphone 1 mg/ml Ampule ONE (07:44)
[2018-03-18 08:14] VITALS: BP 109/51; O2SAT 95
--- NOTE | 2018-03-18 09:00 | XRAY ---
Indication: Periumbilical pain. Nausea, vomiting, and diarrhea. Substance abuse. Multiple contiguous axial images obtained through the abdomen and pelvis using 80 cc Isovue 370 contrast only. Comparison: November 01, 2017. Lung bases are clear. Heart is not enlarged. Noncontrasted stomach and bowel loops appear nonobstructed. Mild fluid distended small and large bowel loops unchanged on delayed imaging, ileus versus enterocolitis. Appendix not seen. No free fluid/air. Remaining liver, gallbladder, pancreas, spleen, adrenal glands, kidneys, ureters, bladder, and aorta appear unremarkable. No pathologic retroperitoneal lymphadenopathy. Osseous structures intact. No ventral or inguinal hernias. Impression: 1. Mild fluid distended small and large bowel loops, ileus versus enterocolitis. 2. Remaining CT abdomen/pelvis with contrast exam is negative. CT DI 8.50
[2018-03-18 09:16] VITALS: PULSE 90
[2018-03-18] MEDS ORDERED: Flagyl 500 MG PO SCH (10:00)
== END 2018-03-18 09:45 | disposition home or self-care (01) ==
LOC: ED 00:54
DX: K52.9 Noninfective gastroenteritis and colitis, unspecified (principal); R10.33 Periumbilical pain; R11.2 Nausea with vomiting, unspecified
CPT/HCPCS: 36000; 36415; 74177; 80053; 80307; 81001; 82150; 83605; 83690; 85025; 96360; 96361; 96374; 96375; 99285; J1170; J1200; J2270; J2550; A9270-GY

== ENCOUNTER 2018-06-10 18:00 | Emergency (ER) | payer OTHER ==
[2018-06-10] MEDS ORDERED: Adacel Vial IM ONE (18:23)
[2018-06-10] MEDS ORDERED: BACIGUENT PACKET TP ONE (18:23)
[2018-06-10] MEDS ORDERED: XYLOCAINE 1% HCL 20 ML MDV IJ ONE (18:23)
--- NOTE | 2018-06-10 18:23 | ERPHSYRPT ---
- History of Present Illness Time Seen by Provider: 06/10/18 18:19 Source: patient Exam Limitations: no limitations Physician History: 27-year-old white male arrives with complaint of a flap laceration to his left hand first intertriginous area symptoms since one hour prior to arrival. According to patient he lacerated it with a box brander while using a chainsaw carrier. He has a flap laceration which is approximately 4 cm. He has full range of motion to his left hand and fingers. Past medical history includes asthma, ADD, anxiety Past surgical history includes tonsils removed Occurred: just prior to arrival (one hour prior to arriva) Method of Injury: incised (lacerated with box brander) Severity of Pain-Max: moderate Severity of Pain-Current: moderate (that his left hand negative) Extremities Pain Location: hand: left Modifying Factors: Improves With: nothing Associated Symptoms: No back pain, No chills, No chest discomfort, No chest pain , No dyspnea, No fever, No jaw pain, No nausea, No neck pain, No sweating, No short of breath, No vomiting Allergies/Adverse Reactions: Penicillins Allergy (Verified 06/10/18 18:23) Hx Tetanus, Diphtheria Vaccination/Date Given: Yes Hx Influenza Vaccination/Date Given: Yes Hx Pneumococcal Vaccination/Date Given: No - Review of Systems Constitutional: No Fever, No Chills Eyes: No Symptoms Ears, Nose, & Throat: No Symptoms Respiratory: No Cough, No Dyspnea Cardiac: No Chest Pain, No Edema, No Syncope Abdominal/Gastrointestinal: No Abdominal Pain, No Nausea, No Vomiting, No Diarrhea Genitourinary Symptoms: No Dysuria Musculoskeletal: Injury (laceration left hand first intertriginous area, dorsally), No Arthralgias, No Back Pain, No Neck Pain, No Deformity, No Joint Redness, No Joint Pain, No Joint Swelling, No Myalgias Skin: Other (4 cm laceration left hand dorsal first intertriginous area) Neurological: No Dizziness, No Focal Weakness, No Sensory Changes Psychological: No Symptoms Endocrine: No Symptoms All Other Systems: Reviewed and Negative - Past Medical History Pertinent Past Medical History: Yes Neurological History: No Pertinent History ENT History: No Pertinent History Cardiac History: No Pertinent History Respiratory History: Asthma Endocrine Medical History: No Pertinent History Musculoskeletal History: No Pertinent History GI Medical History: No Pertinent History History: No Pertinent History Psycho-Social History: Anxiety, Attention Deficit Disorder Male Reproductive Disorders: No Pertinent History - Past Surgical History Past Surgical History: Yes Neuro Surgical History: No Pertinent History Cardiac: No Pertinent History Respiratory: No Pertinent History Gastrointestinal: No Pertinent History Genitourinary: No Pertinent History Musculoskeletal: No Pertinent History Male Surgical History: No Pertinent History Other Surgical History: TONSILS REMOVED - Social History Smoking Status: Never smoker How long have you smoked: 10 Exposure to second hand smoke: Yes Drug Use: none Patient Lives Alone: No - Nursing Vital Signs Nursing Vital Signs: Initial Vital Signs Temperature 99.4 F 06/10/18 18:05 Pulse Rate 125 H 06/10/18 18:05 Respiratory Rate 20 06/10/18 18:05 Blood Pressure 148/95 06/10/18 18:05 O2 Sat by Pulse Oximetry 98 06/10/18 18:05 Pain Scale Pain Intensity 8 - Physical Exam General Appearance: moderate distress, alert Eyes, Ears, Nose, Throat Exam: moist mucous membranes Neck Exam: non-tender, supple Cardiovascular/Respiratory Exam: chest non-tender, normal breath sounds, regular rate/rhythm, no respiratory distress Abdominal Exam: non-tender, No guarding Back Exam: normal inspection, No vertebral tenderness Shoulder Exam: normal inspection, non-tender, no evidence of injury, normal ROM Elbow/Forearm Exam: normal inspection, non-tender, no evidence of injury, normal ROM Wrist Exam: normal inspection, non-tender, no evidence of injury Hand Exam: normal ROM, laceration (4 cm laceration dorsal left hand first intertriginous area), No normal inspection (4 cm flap laceration left dorsal hand first intertriginous ar), No abrasions, No asymmetry, No bone tenderness, No deformity, No ecchymosis, No infection, No limited ROM, No nail injury, No soft tissue tenderness, No stiffness Neuro/Tendon Exam: normal sensation, normal motor functions Mental Status Exam: alert, oriented x 3, cooperative Skin Exam: other (4 cm laceration (fLAP)dorsal left hand first intertriginous area) SpO2 Interpretation: normal O2 Delivery: Room Air Ordered Tests: Active Orders 24 hr Category Date Time Status Prepare for Sutures STAT Care 06/10/18 18:23 Active Sutures STAT Care 06/10/18 18:23 Active Wound Care STAT Care 06/10/18 18:23 Active Medication Summary Discontinued Medications Generic Name Dose Route Start Last Admin Trade Name Moustapha PRN Reason Stop Dose Admin Bacitracin Zinc 0.9 gm 06/10/18 18:23 06/10/18 18:30 Baciguent Packet TP 06/10/18 18:24 0.9 gm STAT ONE Administration Bacitracin Zinc Confirm 06/10/18 18:28 Baciguent Packet Administered 06/10/18 18:29 Dose 1 gm .ROUTE .STK-MED ONE Diphtheria/Tetanus/Acell Pertussis 0.5 ml 06/10/18 18:23 06/10/18 18:30 Adacel Vial IM 06/10/18 18:24 Not Given .ONCE ONE Lidocaine HCl 5 ml 06/10/18 18:23 06/10/18 18:30 Xylocaine 1% Hcl 20 Ml Mdv IJ 06/10/18 18:24 5 ml STAT ONE Administration Lidocaine HCl Confirm 06/10/18 18:28 Xylocaine 1% Hcl 20 Ml Mdv Administered 06/10/18 18:29 Dose 5 ml .ROUTE .STK-MED ONE - Progress Progress: improved Progress Note: 06/10/18 19:30 4 cm flap laceration repair left hand first intertriginous space dorsal surface. Laceration sterilely prepped and draped. Laceration anesthetized with 1% lidocaine. Laceration inspected no foreign bodies are noted. Patient neurovascularly intact. Lacerations sutured using 9 5. 0 Ethilon sutures (interrupted) Sterile dressing and bacitracin applied, - Departure Departure Disposition: Home Clinical Impression: Laceration of left hand Qualifiers: Encounter type: initial encounter Foreign body presence: without foreign body Qualified Code(s): S61.412A - Laceration without foreign body of left hand, initial encounter Condition: Fair Critical Care Time: No Referrals: DOCTOR,NO FAMILY [Primary Care Provider] - Instructions: Laceration Repair With Stitches (DC) Additional Instructions: Return home. Bacitracin to area until healed. Keep area clean and dry. Sutures out in 5 days. Follow-up with your family doctor or return if signs of infection or problems. Return for acute distress or for severe symptoms.
[2018-06-10] MEDS ORDERED: BACIGUENT PACKET ONE (18:28)
[2018-06-10] MEDS ORDERED: XYLOCAINE 1% HCL 20 ML MDV ONE (18:28)
[2018-06-10 19:37] VITALS: BP 155/109; PULSE 120; O2SAT 97
[2018-06-10] MEDS ORDERED: NORCO 5/325 MG PO ONE ×2 (19:38)
[2018-06-10] MEDS ORDERED: NORCO 5/325 MG ONE (19:41)
== END 2018-06-10 19:50 | disposition home or self-care (01) ==
LOC: ED 18:00
DX: S61.412A Laceration without foreign body of left hand, initial encounter (principal); W45.8XXA Other foreign body or object entering through skin, initial encounter; F41.9 Anxiety disorder, unspecified
CPT/HCPCS: 12002; 96372; 99284; A9270-GY

== ENCOUNTER 2024-05-04 08:33 | Emergency (ER) | payer MEDICAID, OTHER ==
--- NOTE | 2024-05-04 09:06 | XRAY ---
Indication: Cough. Comparison: February 08, 2016 Portable chest again demonstrates normal heart and lungs. Bony thorax intact again with minimal dextroscoliosis. No new/acute findings.
[2024-05-04 09:10] VITALS: O2SAT 96
[2024-05-04] MEDS ORDERED: TYLENOL EXTRA STRENGTH 500 MG ONE (09:21)
[2024-05-04] MEDS: TYLENOL EXTRA STRENGTH 500 MG PO STA (09:22)
[2024-05-04 10:00] LABS: Group A Strep NOT DETECTED (NEGATIVE)
[2024-05-04 10:12] LABS: INFLUENZA B NEGATIVE (NEGATIVE); RESPIRATORY SYNCTIAL VIRUS NEGATIVE (NEGATIVE); SARS-CoV-2 Xpert Express NEGATIVE (NEGATIVE)
[2024-05-04 10:19] LABS: INFLUENZA A POSITIVE (NEGATIVE)
--- NOTE | 2024-05-04 10:33 | ERPHSYRPT ---
- History of Present Illness Time Seen by Provider: 05/04/24 09:30 Source: patient Exam Limitations: no limitations Patient Subjective Stated Complaint: C/O cough and headache since last night Triage Nursing Assessment: Patient ambulated back to ER. He is alert and oriented. Patient with a forceful, non-productive cough. NO SOB. Skin tone normal. SKin is hot to touch. CRAWFORD WNL. Timing/Duration: today Severity: mild Associated Symptoms: cough, chills Allergies/Adverse Reactions: Penicillins Allergy (Verified 05/04/24 09:00) Hx Tetanus, Diphtheria Vaccination/Date Given: Yes Hx Influenza Vaccination/Date Given: No Hx Pneumococcal Vaccination/Date Given: No Immunizations Up to Date: Yes Travel Risk - International Travel Have you traveled outside of the country in past 3 weeks: No - Emerging Infectious Disease Are you exhibiting symptoms associated with any current EIDs: Yes Symptoms: Cough: New Onset, Fever, Headaches/Body Aches/ - Review of Systems Constitutional: No Symptoms, Night Sweats Ears, Nose, & Throat: No Symptoms Respiratory: Cough Cardiac: No Symptoms Abdominal/Gastrointestinal: No Symptoms Genitourinary Symptoms: No Symptoms Musculoskeletal: No Symptoms - Past Medical History Pertinent Past Medical History: Yes Neurological History: No Pertinent History ENT History: No Pertinent History Cardiac History: No Pertinent History Respiratory History: Asthma Endocrine Medical History: No Pertinent History Musculoskeletal History: No Pertinent History GI Medical History: No Pertinent History History: No Pertinent History Psycho-Social History: Anxiety, Attention Deficit Disorder Male Reproductive Disorders: No Pertinent History Other Medical History: PTSD - Past Surgical History Past Surgical History: Yes Neuro Surgical History: No Pertinent History Cardiac: No Pertinent History Respiratory: No Pertinent History Gastrointestinal: No Pertinent History Genitourinary: No Pertinent History Musculoskeletal: No Pertinent History Male Surgical History: No Pertinent History - Social History Smoking Status: Former smoker Exposure to second hand smoke: Yes Drug Use: other - Social Determinants of Health Will the patient participate in the screening: Declined to provide - Nursing Vital Signs Nursing Vital Signs: Initial Vital Signs Temperature 100.1 F 05/04/24 08:50 Pulse Rate 100 H 05/04/24 08:50 Respiratory Rate 20 05/04/24 08:50 Blood Pressure 118/76 05/04/24 08:50 O2 Sat by Pulse Oximetry 98 05/04/24 08:50 Pain Scale Pain Intensity 8 - Physical Exam General Appearance: no apparent distress Eye Exam: PERRL/EOMI Ears, Nose, Throat Exam: normal ENT inspection Neck Exam: normal inspection Respiratory Exam: normal breath sounds Cardiovascular Exam: regular rate/rhythm Gastrointestinal/Abdomen Exam: soft, normal bowel sounds SpO2: 96 Ordered Tests: Active Orders 24 hr Category Date Time Status CHEST 1 VIEW (PORTABLE) Stat Exams 05/04/24 08:53 Completed Medication Summary Discontinued Medications Generic Name Dose Route Start Last Admin Trade Name Moustapha PRN Reason Stop Dose Admin Acetaminophen 1,000 mg 05/04/24 09:15 05/04/24 09:22 Acetaminophen 500 Mg Tablet PO 05/04/24 09:16 1,000 mg STAT STA Administration Acetaminophen Confirm 05/04/24 09:21 Acetaminophen 500 Mg Tablet Administered 05/04/24 09:22 Dose 1,000 mg .ROUTE .[employer] ONE Lab/Rad Data: Laboratory Results 05/04/24 Range/Units 09:30 Influenza Type A Ag POSITIVE A (NEGATIVE) Influenza Type B Ag NEGATIVE (NEGATIVE) RSV (PCR) NEGATIVE (NEGATIVE) SARS-CoV-2 (PCR) NEGATIVE (NEGATIVE) Group A Strep Antibody NOT DETECTED (NEGATIVE) - Progress Progress Note: Patient was seen and evaluated for flu type symptoms his screens were positive for influenza A chest x-ray reveals no acute findings. Patient was updated with his results he will be discharged home with Tamiflu he is to take [id number] medications for his fever cough and congestion and he is to follow-up with his primary care provider 05/04/24 10:29 Medical Desision Making - Discussion of managment Will see patient: In office - Departure Departure Disposition: Home Clinical Impression: Influenza A Condition: Stable Critical Care Time: No Referrals: DOCTOR,NO FAMILY [Primary Care Provider] - Follow up/PCP as directed Prescriptions: Oseltamivir 75 mg [Tamiflu 75MG Capsule] 75 mg PO BID #10 cap
[2024-05-04 10:47] VITALS: BP 117/68; PULSE 80; RESP 16; TEMP 99
== END 2024-05-04 10:47 | disposition home or self-care (01) ==
LOC: ED 08:33
DX: J10.1 Influenza due to other identified influenza virus with other respiratory manifestations (principal); R05.1 Acute cough; R51.9 Headache, unspecified; Z79.899 Other long term (current) drug therapy
CPT/HCPCS: 0241U; 71045; 87651; 99284; 99283; A9270-GY